=== PATIENT | male | born 1960 | race Caucasian/White ===

== ENCOUNTER 2019-10-03 03:11 | Emergency (ER) | payer BC, OTHER ==
[2019-10-03] MEDS ORDERED: Ondansetron PF 4 MG/2 ML Vial ONE (03:28)
[2019-10-03] MEDS ORDERED: Morphine 4 MG/ML VIAL ONE (03:28)
[2019-10-03] MEDS ORDERED: Ketorolac Tromethamine 30 MG/ML VIAL ONE ×2 (03:28→04:51)
[2019-10-03 03:52] LABS: #Basophils 0.1 thou/uL (0.0-0.2); #Eosinphils 0.1 thou/uL (0.0-0.7); #Lymphocytes 1.6 thou/uL (1.20-3.40); #Monocytes 0.5 thou/uL (0.11-0.59); #Neutrophils 4.8 thou/uL (1.40-6.50); %Basophils 0.8 % (0.0-1.0); %Eosinophils 0.9 % (0.0-10.0); %Lymphocytes 22.7 % (21.0-51.0); %Monocytes 7.4 % (0.0-10.0); %Neutrophils 68.2 % (42.0-75.0); Mean Corpuscular HGB CONC 35.6 g/dL (32.0-36.0); Mean Corpuscular Hemoglobin 34.1 pg (27.0-31.0); Mean Corpuscular Volume 95.9 fL (78.0-98.0); Mean Platelet Volume 7.4 fL (7.4-10.4); Platelet Count 236 thou/uL (130-400); RBC Distribution Width 11.2 % (11.5-14.5); Red Blood Cell (RBC) Count 4.69 mill/uL (4.70-6.10)
[2019-10-03 04:13] LABS: ALT (SGPT) 56 U/L (8-55); AST (SGOT) 45 U/L (5-34); Albumin 4.8 g/dL (3.4-4.8); Alkaline Phosphatase 62 U/L (40-110); Anion Gap 20 mmol/L (10-20); BUN (Urea Nitrogen) 14 mg/dL (8.4-25.7); Bilirubin, Total 1.4 mg/dL (0.2-1.2); Calc. Creatinine Clearance 0 mL/min (70-130); Calcium 10.3 mg/dL (7.8-10.44); Carbon Dioxide 23 mmol/L (23-31); Chloride 99 mmol/L (98-107); Estimated GFR-MDRD 50; Globulin 2.9 g/dL (2.4-3.5); Glucose 122 mg/dL (80-115); Protein, Total 7.7 g/dL (5.8-8.1); Sodium 138 mmol/L (136-145)
[2019-10-03 04:17] LABS: Bacteria/HPF None Seen HPF (None Seen); Bilirubin Negative (Negative); Blood, Urine 2+ (Negative); Clarity Clear (Clear); Glucose, Urine (Dipstick) Normal (Negative); Leukocyte Negative Leu/uL (Negative); Nitrite Negative (Negative); Protein, Urine (Dipstick) Negative (Neg-Trace); RBC/HPF 21-50 HPF (0-3); Squamous Epithelial None Seen HPF (0-3); Urobilinogen Normal mg/dL (Less than 2); WBC/HPF 0-3 HPF (0-3)
--- NOTE | 2019-10-03 09:38 | CT ---
PRELIMINARY REPORT/[facility]IOLOGY/EMERGENCY AFTER HOURS PROCEDURE EXAM: CT Abdomen and Pelvis Without Intravenous Contrast CLINICAL HISTORY: Patient reporting left flank pain radiating around abdomen starting last night with nausea. No fevers, dysuria, frequency or urgency but hematuria since last night. TECHNIQUE: Axial computed tomography images of the abdomen and pelvis without intravenous contrast. CONTRAST: None. COMPARISON: None provided. FINDINGS: LUNG BASES: No basilar airspace consolidation or pleural effusion. LIVER: Unremarkable. GALLBLADDER AND BILE DUCTS: Cholelithiasis. No biliary ductal dilatation. PANCREAS: Unremarkable. SPLEEN: Unremarkable. ADRENAL GLANDS: Unremarkable. KIDNEYS, URETERS, AND BLADDER: Two 3 mm nonobstructing stone in the lower pole of the right kidney. N o right hydronephrosis. 9 mm nonobstructing stone at the lower pole of the left kidney. 5 mm stone at the left ureteropelvic junction causing left hydronephrosis and left perinephric stranding. STOMACH AND BOWEL: Colonic diverticulosis without evidence of diverticulitis. No bowel obstruction. APPENDIX: Normal appendix. PERITONEUM: No free fluid. No free air. LYMPH NODES: No lymphadenopathy. REPRODUCTIVE: Unremarkable as visualized. VASCULATURE: No aortic aneurysm. ABDOMINAL WALL AND SOFT TISSUES: Unremarkable. BONES: No fracture or suspicious osseous abnormality. MISCELLANEOUS: Small left fat containing inguinal hernia. IMPRESSION: 5 mm stone at the left ureteropelvic junction causing left hydronephrosis and left perine phric stranding. Bilateral nonobstructing renal stones measuring up to 9 mm in the lower pole of the left kidney. ELECTRONICALLY SIGNED BY: Maureen Moreland MD Oct 03, 2019 5:11:43 AM BUSINESS TRAINER FINAL REPORT ABDOMEN AND PELVIC CT SCAN WITHOUT IV CONTRAST: EMERGENT AFTER HOURS EXAM TIME: 4:37 AM. DATE: 10/03/2019. Obstructing calculus at the left ureteropelvic junction with proximal hydronephrosis and some perinep hric stranding. Bilateral nonobstructing renal calculi. This report is in agreement with the preliminary report. POS: [facility]
== END 2019-10-03 05:52 | disposition home or self-care (01) ==
LOC: ERS 03:11
DX: N13.2 Hydronephrosis with renal and ureteral calculous obstruction (principal); K21.9 Gastro-esophageal reflux disease without esophagitis; I10 Essential (primary) hypertension; Z79.899 Other long term (current) drug therapy
CPT/HCPCS: 74176; 80053; 81003; 81015; 85025; 96374; 96375; 96376; J1885; J2270; J2405

== ENCOUNTER 2021-06-02 04:22 | Observation (INO) | payer OTHER ==
[2021-06-02] MEDS ORDERED: Ketorolac Tromethamine 30 MG/ML VIAL ONE ×2 (04:39→10:34)
[2021-06-02] MEDS ORDERED: Ondansetron PF 4 MG/2 ML Vial ONE ×2 (04:39→10:34)
[2021-06-02] MEDS ORDERED: Morphine 4 MG/ML VIAL ONE ×3 (05:29→07:10)
[2021-06-02 05:41] LABS: Bilirubin Negative (Negative); Blood, Urine 2+ (Negative); Clarity Clear (Clear); Glucose, Urine (Dipstick) Normal (Negative); Ketone, Urine Negative (Negative); Leukocyte Negative Leu/uL (Negative); Nitrite Negative (Negative); Protein, Urine (Dipstick) Negative (Neg-Trace); RBC/HPF Greater than 50 HPF (0-3); Squamous Epithelial None Seen HPF (0-3); Urobilinogen Normal mg/dL (Less than 2); WBC/HPF 0-3 HPF (0-3); pH, Urine 5.5 (5.0-9.0)
[2021-06-02 05:45] LABS: Bacteria/HPF 1+ HPF (None Seen)
[2021-06-02 06:03] LABS: Hemoglobin 16.4 g/dL (14.0-18.0); Mean Corpuscular HGB CONC 34.6 g/dL (32.0-36.0); Mean Corpuscular Hemoglobin 33.5 pg (27.0-31.0); Mean Corpuscular Volume 96.8 fL (78.0-98.0); Mean Platelet Volume 7.5 fL (7.4-10.4); Platelet Count 328 thou/uL (130-400); RBC Distribution Width 11.9 % (11.5-14.5); Red Blood Cell (RBC) Count 4.88 mill/uL (4.70-6.10)
[2021-06-02 06:52] LABS: Anion Gap 14 mmol/L (10-20); BUN (Urea Nitrogen) 17 mg/dL (8.4-25.7); Calc. Creatinine Clearance 0 mL/min (70-130); Carbon Dioxide 23 mmol/L (23-31); Chloride 104 mmol/L (98-107); Glucose 88 mg/dL (80-115); Sodium 138 mmol/L (136-145)
[2021-06-02 06:57] LABS: Eosinophils 1 % (0-10); Lymphocytes 41 % (21-51); MDiff Complete? YES; Monocytes 6 % (0-10); Neutrophil 52 % (42-75)
[2021-06-02] MEDS ORDERED: cefTRIAXone\\ROCEPHIN 2 GM VIAL ONE (07:10)
[2021-06-02] MEDS ORDERED: Dextrose 5 % And 0.9 % NaCl 1,000 ML IV SCH (08:30)
[2021-06-02] MEDS ORDERED: Morphine 4 MG/ML VIAL SLOW IVP PRN (08:44)
[2021-06-02] MEDS ORDERED: Morphine 2 MG/ML VIAL SLOW IVP PRN (08:44)
[2021-06-02] MEDS ORDERED: Ondansetron PF 4 MG/2 ML Vial IVP PRN (08:45)
[2021-06-02 09:45] VITALS: BMI 32.2
[2021-06-02] MEDS ORDERED: PROPOFOL 200 MG/20 ML VIAL ONE (10:34)
[2021-06-02] MEDS ORDERED: Dexamethasone 20 MG/5 ML VIAL ONE (10:34)
[2021-06-02] MEDS ORDERED: Lidocaine 1% PF 5 ML VIAL ONE (10:34)
[2021-06-02] MEDS ORDERED: Iothalamate Meglumine 60% 30 ML VIAL FS ONE (10:45)
[2021-06-02] MEDS ORDERED: Acetaminophen 500 MG TAB PO PRN (11:03)
[2021-06-02] MEDS ORDERED: Zolpidem Tartrate 5 MG TAB PO PRN (11:03)
[2021-06-02] MEDS ORDERED: Oxybutynin 5 MG TAB PO PRN (11:03)
[2021-06-02] MEDS ORDERED: hydrALAZINE 20 MG/ML VIAL SLOW IVP PRN ×2 (11:03)
[2021-06-02] MEDS ORDERED: Bisacodyl 10 MG SUPP PR PRN (11:03)
[2021-06-02] MEDS ORDERED: Phenazopyridine HCl 97.5 MG TABLET PO PRN (11:03)
[2021-06-02] MEDS ORDERED: diphenhydrAMINE 50 MG/ML VIAL IVP PRN (11:03)
[2021-06-02 11:25] LABS: SARS-CoV-2 NAA Rapid Test Not Detected (NotDetected)
[2021-06-02] MEDS ORDERED: Phenazopyridine HCl 100 MG TAB PO PRN (11:50)
[2021-06-02] MEDS: Sodium Chloride 0.9% 1,000 ML IV SCH ×2 (11:54→22:18)
[2021-06-02] MEDS: HYDROcodone/Acetaminophen 5/325 mg Tablet PO PRN ×3 (12:25→20:37)
[2021-06-02] MEDS: Potassium Chloride 20 MEQ TAB PO SCH (16:36)
[2021-06-02] MEDS: Docusate 100 MG CAP PO SCH (20:14)
[2021-06-02] MEDS: Famotidine/PF 20 mg/2ml Vial SLOW IVP SCH (20:14)
[2021-06-03] MEDS: HYDROcodone/Acetaminophen 5/325 mg Tablet PO PRN ×2 (03:04→07:46)
[2021-06-03] MEDS ORDERED: cefTRIAXone\\ROCEPHIN 2 GM in Sodium Chloride 0.9% 100 ML IVPB SCH (06:00)
[2021-06-03 06:32] LABS: #Monocytes 1.1 thou/uL (0.11-0.59); #Neutrophils 13.4 thou/uL (1.40-6.50); %Basophils 0.2 % (0.0-1.0); %Eosinophils 0.1 % (0.0-10.0); %Lymphocytes 12.3 % (21.0-51.0); %Monocytes 6.7 % (0.0-10.0); %Neutrophils 80.8 % (42.0-75.0); Hemoglobin 14.4 g/dL (14.0-18.0); Mean Corpuscular HGB CONC 33.5 g/dL (32.0-36.0); Mean Corpuscular Volume 98.7 fL (78.0-98.0); Mean Platelet Volume 7.1 fL (7.4-10.4); Platelet Count 246 thou/uL (130-400); RBC Distribution Width 11.8 % (11.5-14.5); Red Blood Cell (RBC) Count 4.35 mill/uL (4.70-6.10); White Blood Cell (WBC) Count 16.5 thou/uL (4.8-10.8)
[2021-06-03 06:53] LABS: Anion Gap 13 mmol/L (10-20); BUN (Urea Nitrogen) 22 mg/dL (8.4-25.7); Calc. Creatinine Clearance 89 mL/min (70-130); Calcium 8.7 mg/dL (7.8-10.44); Carbon Dioxide 22 mmol/L (23-31); Chloride 104 mmol/L (98-107); Glucose 123 mg/dL (80-115); Potassium 4.1 mmol/L (3.5-5.1); Sodium 135 mmol/L (136-145)
[2021-06-03] MEDS: Potassium Chloride 20 MEQ TAB PO SCH (07:48)
[2021-06-03] MEDS: Docusate 100 MG CAP PO SCH (07:48)
[2021-06-03] MEDS: Famotidine/PF 20 mg/2ml Vial SLOW IVP SCH (07:49)
[2021-06-03] MEDS: Sodium Chloride 0.9% 1,000 ML IV SCH (08:05)
[2021-06-03] MEDS ORDERED: Tamsulosin HCl 0.4 MG CAP PO SCH (09:00)
[2021-06-03 11:41] VITALS: BP 145/80; TEMP 97.4
[2021-06-03] MEDS ORDERED: Lisinopril 10 MG TAB PO SCH (12:00)
[2021-06-03] MEDS ORDERED: Lisinopril/Hydrochlorothiazide 20 mg/12.5 mg Tablet PO SCH (21:00)
== END 2021-06-03 12:27 | disposition home or self-care (01) ==
LOC: ERS 04:22 → SURG B 07:27
PROVIDERS: ADMIT Internal Medicine; ATTEND Nurse Practitioner Family
PROC: 0T778DZ Dilation of Left Ureter with Intraluminal Device, Via Natural or Artificial Opening Endoscopic (ICD-10-PCS; principal; 2021-06-03)
DX: N13.2 Hydronephrosis with renal and ureteral calculous obstruction (principal); N40.1 Benign prostatic hyperplasia with lower urinary tract symptoms; N13.8 Other obstructive and reflux uropathy; R82.71 Bacteriuria; I10 Essential (primary) hypertension; M53.3 Sacrococcygeal disorders, not elsewhere classified; M54.30 Sciatica, unspecified side; K21.9 Gastro-esophageal reflux disease without esophagitis; Z20.822 Contact with and (suspected) exposure to COVID-19; Z79.899 Other long term (current) drug therapy
CPT/HCPCS: 36415; 74176; 74420; 80048; 81003; 81015; 85025; 87086; 96365; 96375; 96376; C2617; G0378; J0696; J1100; J1885; J2270; J2405; J2704; J3490; S0028; U0002; U0005

== ENCOUNTER 2021-06-07 | Outpatient (CLI) | payer OTHER | END 2021-06-07 07:56 | disposition home or self-care (01) ==

== ENCOUNTER 2021-06-07 | Outpatient (CLI) | payer OTHER | END 2021-06-07 09:08 | disposition home or self-care (01) ==

== ENCOUNTER 2021-06-11 08:42 | Day surgery (SDC) | payer OTHER ==
[2021-06-08 11:48] VITALS: BMI 32.1
[2021-06-11] MEDS ORDERED: Fentanyl 100 MCG/2 ML VIAL ONE ×3 (09:39→13:39)
[2021-06-11] MEDS ORDERED: Levofloxacin 500 mg/D5W 100 ml Premix Bag ONE (09:44)
[2021-06-11] MEDS ORDERED: Lidocaine 1% PF 5 ML VIAL ONE (10:54)
[2021-06-11] MEDS ORDERED: PROPOFOL 200 MG/20 ML VIAL ONE (10:54)
[2021-06-11] MEDS ORDERED: Dexamethasone 20 MG/5 ML VIAL ONE (10:54)
[2021-06-11] MEDS ORDERED: Ondansetron PF 4 MG/2 ML Vial ONE (10:54)
[2021-06-11] MEDS ORDERED: ePHEDrine 50 MG/ML VIAL ONE (10:54)
[2021-06-11] MEDS ORDERED: PHENYLEPHRINE-NS 100 MCG/ML 10 ML SYRINGE ONE (10:54)
[2021-06-11] MEDS ORDERED: Iothalamate Meglumine 60% 30 ML VIAL FS ONE (10:59)
[2021-06-15 20:08] LABS: CA Oxalate Dihydrate 10 % (.); CA Oxalate Monohydrate 90 % (.); Color Brown (.); Stone Weight 140 mg (.)
== END 2021-06-11 16:35 | disposition home or self-care (01) ==
LOC: SDC 08:42
PROVIDERS: ATTEND Urology
PROC: 0TC48ZZ Extirpation of Matter from Left Kidney Pelvis, Via Natural or Artificial Opening Endoscopic (ICD-10-PCS; principal; 2021-06-11)
PROC: 0T778DZ Dilation of Left Ureter with Intraluminal Device, Via Natural or Artificial Opening Endoscopic (ICD-10-PCS; principal; 2021-06-11)
PROC: 0TP98DZ Removal of Intraluminal Device from Ureter, Via Natural or Artificial Opening Endoscopic (ICD-10-PCS; principal; 2021-06-11)
DX: N20.0 Calculus of kidney (principal); I10 Essential (primary) hypertension; K21.9 Gastro-esophageal reflux disease without esophagitis; Z79.2 Long term (current) use of antibiotics; Z79.899 Other long term (current) drug therapy
CPT/HCPCS: 74420; 82365; 88300; C2617; J1100; J1956; J2405; J2704; J3010; J3490

== ENCOUNTER 2022-02-07 14:21 | Outpatient (CLI) | payer OTHER ==
[2022-02-07 15:54] LABS: Hemoglobin 14.8 g/dL (13.5-17.5); Mean Corpuscular HGB CONC 35.6 g/dL (32.0-36.0); Mean Corpuscular Volume 92.9 fl (81.2-95.1); Mean Platelet Volume 9.5 fl (7.4-10.4); Platelet Count 227 10x3/uL (150-450); RBC Distribution Width 12.1 % (11.5-14.5); Red Blood Cell (RBC) Count 4.48 10x6/uL (4.32-5.72); White Blood Cell (WBC) Count 6.5 10x3/uL (3.5-10.5)
[2022-02-07 16:08] LABS: PTT 29.6 sec (22.0-33.0); Prothrombin Time 10.7 sec (9.5-12.1)
[2022-02-07 16:09] LABS: Anion Gap 17 mmol/L (10-20); BUN (Urea Nitrogen) 17 mg/dL (8.4-25.7); Calc. Creatinine Clearance 0 mL/min (70-130); Calcium 9.3 mg/dL (7.8-10.44); Carbon Dioxide 26 mmol/L (23-31); Chloride 98 mmol/L (98-107); Glucose 132 mg/dL (80-115); Potassium 3.6 mmol/L (3.5-5.1); Sodium 137 mmol/L (136-145)
[2022-02-08 00:19] LABS: SARS-CoV-2 PCR by NAA Not Detected (NotDetected)
== END 2022-02-07 14:22 | disposition home or self-care (01) ==
LOC: LABBT 14:21
PROVIDERS: ATTEND Urology
DX: Z01.818 Encounter for other preprocedural examination (principal); Z20.822 Contact with and (suspected) exposure to COVID-19
CPT/HCPCS: 80048; 85027; 85610; 85730; 93005; 93010; U0003; U0005

== ENCOUNTER 2022-02-11 08:51 | Day surgery (SDC) | payer OTHER ==
[2022-02-08 11:57] VITALS: BMI 32.1
[2022-02-11] MEDS ORDERED: Famotidine/PF 20 mg/2ml Vial ONE (09:33)
[2022-02-11] MEDS ORDERED: Ioversol 68 % 50 ML VIAL ONE (12:52)
[2022-02-11] MEDS ORDERED: PHENYLEPHRINE-NS 100 MCG/ML 10 ML SYRINGE ONE (13:02)
[2022-02-11] MEDS ORDERED: Lidocaine 1% PF 5 ML VIAL ONE (13:02)
[2022-02-11] MEDS ORDERED: Glycopyrrolate 0.2 MG/ML 5 ML SYRINGE ONE (13:02)
[2022-02-11] MEDS ORDERED: PROPOFOL 200 MG/20 ML VIAL ONE (13:02)
[2022-02-11] MEDS ORDERED: ePHEDrine 50 MG/ML VIAL ONE (13:02)
[2022-02-11] MEDS ORDERED: Dexamethasone 20 MG/5 ML VIAL ONE (13:02)
[2022-02-11] MEDS ORDERED: Ondansetron PF 4 MG/2 ML Vial ONE (13:02)
[2022-02-11] MEDS ORDERED: ceFAZolin (BATCH) 2 GM/100 ML BAG ONE (14:47)
== END 2022-02-11 17:09 | disposition home or self-care (01) ==
LOC: SDC 08:51
PROVIDERS: ATTEND Urology
DX: N13.2 Hydronephrosis with renal and ureteral calculous obstruction (principal); K21.9 Gastro-esophageal reflux disease without esophagitis; I10 Essential (primary) hypertension; Z79.899 Other long term (current) drug therapy; Z91.018 Allergy to other foods
CPT/HCPCS: 74018; C2617; J0690; J1100; J2405; J2704; J3490; Q9967; S0028

== ENCOUNTER 2024-04-08 08:20 | Outpatient (CLI) | payer BC | END 2024-04-08 08:21 | disposition home or self-care (01) | LOC: BICULT 08:20 | PROVIDERS: ATTEND Internal Medicine | DX: K76.0 Fatty (change of) liver, not elsewhere classified (principal); K80.20 Calculus of gallbladder without cholecystitis without obstruction; R93.2 Abnormal findings on diagnostic imaging of liver and biliary tract | CPT/HCPCS: 76700 ==